=== PATIENT | male | born 1955 | race Caucasian/White ===

== ENCOUNTER → 2018-05-31 13:19 | Outpatient (CLI) | payer OTHER, SELFPAY ==
--- NOTE | 2018-05-31 13:30 | RAD_ITS ---
STUDY: X-RAY - RIGHT KNEE REASON FOR EXAM: Male, 63 years old. Knee pain. TECHNIQUE: 3 view(s) of the knee. COMPARISON: None. FINDINGS: Normal visualized distal femur. Normal visualized proximal tibia and fibula. Normal proximal tibiofibular articulation. There is no demonstrated fracture. Normal medial femorotibial compartment. Normal lateral femorotibial compartment. Normal patellofemoral articulation. There is no demonstrated joint effusion. The soft tissue structures are unremarkable. RAD/Knee 3 Views IMPRESSION: Normal x-ray examination of the knee. Electronically Signed: Derrick Flannery MD at 15:57 EST , Service support ,
--- NOTE | 2018-05-31 13:40 | RAD_ITS ---
STUDY: X-RAY - LEFT KNEE REASON FOR EXAM: Male, 63 years old. Pain. TECHNIQUE: 3 view(s) of the knee. COMPARISON: None. FINDINGS: Normal visualized distal femur. Normal visualized proximal tibia and fibula. Normal proximal tibiofibular articulation. There is no demonstrated fracture. Normal medial femorotibial compartment. Normal lateral femorotibial compartment. Normal patellofemoral articulation. There is no demonstrated joint effusion. The soft tissue structures are unremarkable. RAD/Knee 3 Views IMPRESSION: Normal x-ray examination of the knee. Electronically Signed: Derrick Flannery MD at 15:58 EST , Service support ,
--- NOTE | 2018-05-31 13:42 | RAD_ITS ---
STUDY: X-RAY - bilateral Knee(s) REASON FOR EXAM: Male, 63 years old. Pain TECHNIQUE: Single frontal view(s) of the bilateral knee(s) were obtained including AP standing weight-bearing views. COMPARISON: None. FINDINGS - RIGHT KNEE: Normal visualized right distal femur. Normal visualized proximal right tibia and fibula. Normal right proximal tibiofibular articulation. There is no demonstrated fracture of the right knee. Normal medial femorotibial compartment of the right knee. Normal lateral femorotibial compartment of the right knee. The soft tissue structures are unremarkable. FINDING - LEFT KNEE: Normal visualized left distal femur. Normal visualized proximal left tibia and fibula. Normal left proximal tibiofibular articulation. There is no demonstrated fracture of the left knee. There is mild degenerative arthrosis of the medial femorotibial compartment of the left knee. Normal lateral femorotibial compartment of the left knee. The soft tissue structures are unremarkable. RAD/Knees Standing AP Bilateral IMPRESSION: No acute abnormalities. Very mild narrowing of the medial tibiofemoral compartment of the left knee. Electronically Signed: Derrick Flannery MD at 15:59 EST , Service support ,
== END ==
PROVIDERS: Family Provider Family Medicine; PCP Family Medicine; Referring Provider Family Medicine; Visit Provider Family Medicine
DX: M23.91 Unspecified internal derangement of right knee (principal); M23.92 Unspecified internal derangement of left knee
CPT/HCPCS: 73562; 73565

== ENCOUNTER 2018-12-06 07:37 | Observation (INO) | payer OTHER, SELFPAY ==
[2018-11-12 10:08] VITALS: BP 122/76; PULSE 65; RESP 16; TEMP 36.3; O2SAT 98; BMI 28.3
--- NOTE | 2018-11-12 10:28 | SDCEKG_ITS ---
Test Reason : Blood Pressure : / mmHG Vent. Rate : 057 BPM Atrial Rate : 057 BPM P-R Int : 200 ms QRS Dur : 098 ms QT Int : 458 ms P-R-T Axes : 030 021 011 degrees QTc Int : 445 ms Sinus bradycardia Otherwise normal ECG Confirmed by HARSH ARGUELLO, NENITA ([id number]), video effects editor GRANT GRIGGS ([id number]) on 11/16/2018 2:13:11 PM Referred By: Efren Callejas Confirmed By:NENITA HOUSE MD
[2018-11-12 11:04] LABS: Hematocrit 43.4 % (40-54); Hemoglobin 15.1 g/dl (13.0-16.5); Mean Corp Hgb Conc 34.8 g/gl (32-36); Mean Platelet Vol. 10.8 fl (6.2-12.0); Platelet Count 202 K/mm3 (150-450); RBC Distribution Width CV 12.5 % (11.6-14.6); Red Blood Count 4.57 M/mm3 (4.6-6.2); White Blood Count 7.2 K/mm3 (4.4-11.0)
[2018-11-12 11:08] LABS: Scan Indicated on CBC? Y/N NO
[2018-11-12 11:13] LABS: Anion Gap 8 (5-15); BUN 20 mg/dL (7-18); Calcium,Total 9.3 mg/dL (8.5-10.1); Chloride 103 mmol/L (98-107); Creatinine, Serum 1.25 mg/dL (0.70-1.30); EST Glomerular Filtration Rate 62 mL/min (>60); Est Glom Filt Rate - Afr Amer 75 mL/min (>60); Glucose 103 mg/dL (74-106); Potassium 3.3 mmol/L (3.5-5.1); Sodium Level 139 mmol/L (136-145)
--- NOTE | 2018-11-18 10:35 | CASEMGMT ---
Spoke with patient regarding discharge plans for after upcoming surgery. Patient plans to return home with assistance from . Patient has outpatient physical therapy set up at [facility]. Patient has a walker and a shower seat. There is a bedroom and bathroom on the 1st level of the home. There are 1-2 steps to enter home. Patient asking about time for surgery, informed patient like scheduling would likely call tomorrow, Thursday, as surgery is scheduled for a Thursday. Encouraged patient to contact surgery scheduling if no phone call by 3:30-4pm. Patient also inquiring if it's necessary to see his PCP today, the PCP's office called patient and stated he had to be seen despite already having PAT here at [facility] and having EKG. Patient reports he will contact surgeon's office to see if PCP visit is necessary. Latoya Hammond LPN Clinical Support
[2018-12-06] VITALS (16 sets, daily range): BP systolic 106–122; BP diastolic 64–77; PULSE 62–88; RESP 16–18; TEMP 36.1–36.9; O2SAT 91–99; BMI 28.3
--- NOTE | 2018-12-06 | KNEE_PTH ---
PATIENT: ROULA MALLOY LOC: MS3 U#:[id number] AGE/SX: 63/M ROOM: OK305 RE12/06/[address]: Dr. Efren Callejas DO : 1955 BED: 1 DIS: 12/07/2018 SPEC #: [id number] RECD: 12/06/18 12:15 STATUS: TALI REQ #: [id number] JANINE: 12/06/18 00:[address]: Efren Callejas DEPT: SURGICAL PATHOLOGY RECD BY: Guillermo Conde ENTERED: 12/06/18 12:15 SP TYPE: TOTAL KNEE OTHR DR: Dr. Hima Reynolds MD Tissues: Knee, NOS Procedures: Decalcification bone/plaque Surgery Specimen Level IV HEADER OPERATION: ERAS, total knee replacement PRE-OP DIAGNOSIS: Endstage osteoarthritis left knee TISSUE SUBMITTED: Left knee bone and soft tissue MICROSCOPIC DIAGNOSIS Bone and soft tissue of left knee, total knee resection: Degenerative joint disease. AM:michael 12/09/18 MICROSCOPIC DESCRIPTION Slides are reviewed. GROSS DESCRIPTION Received is one container designated left knee bone and soft tissue. The specimen consists of multiple fragments of cano-yellow bone measuring in aggregate 12 x 9 x 3 cm. No soft tissue is identified. A number of bony fragments contain articular surfaces consistent with tibial plateau and femoral condyle and displaying prominent osteophyte formation and bone erosion. Appliance Installer sections are submitted in one cassette after decalcification. / SJ:michael 12/06/18 TC:5 CPT: 12798, 32389
[2018-12-06] MEDS: Gabapentin 600 MG Tablet PO (06:20)
[2018-12-06] MEDS: Acetaminophen 500 MG Tablet 1000 MG PO ×3 (06:20→21:00)
[2018-12-06] MEDS: Magnesium Sulfate 4gm/100mL 4 GM/100 ML IV.SOLN. IV (06:20)
[2018-12-06 06:56] LABS: Bedside Glucose 165 mg/dL (70-110)
[2018-12-06] MEDS: Cefazolin 2 GM in 0.9% Normal Saline 100 ML IV (07:33)
--- NOTE | 2018-12-06 09:48 | PCM.OPRPT ---
Report of Operation Date of Procedure: 12/06/18 Pre-Operative Diagnosis: OA left knee Surgery/Procedure Performed:: same Description of Surgical Findings:: Primary Surgeon/Physician: Efren Callejas office services associate: AGATA Beal office services associate: Pre-Operative Diagnosis: OA left knee Post-Operative Diagnosis: same Surgery/Procedure Performed: Left TKR Estimated Blood Loss: 25cc Specimen's Removed: bone Type of Anesthesia: general ASA Class: 2 Implants: [Daniel Triathlon size 5 CR, press-fit femur, size 5 press-fit tibia, 9 mm CS polyethylene, 32 mm press-fit patella ] Indications: Patient has severe end-stage osteoarthritis diagnosed via x-rays in the knee. They have failed all forms of conservative measures including activity modification, injections, anti-inflammatories, use of assistive device. The patient has pain that affects on a daily basis and prevents him from doing things that they enjoyed. They have elected to undergo the above procedure. The risks of the procedure were discussed at length and their questions were answered. Procedure Description: The patient was greeted in the preoperative area. The [left ] knee was then marked with a surgical marker. Patient was then taken to or [address]. They were administered a dose of antibiotics as well as tranexamic acid. Once adequate anesthesia was obtained and airway was secured to placed in supine position on the operating room table. A well-padded tourniquet was placed on the affected extremity. Leg was then prepped and draped in the usual sterile fashion from the knee down. Ioban was used on the skin. Surgical timeout was then performed and confirmed with all present. Six-inch Esmarch was used to examine the limb and tourniquet was then inflated to 250 mmHg. A longitudinal incision was then planned and carried out in the anterior aspect of the knee. The dissection was then carried the length of the incision the extensor mechanism was identified. Standard medial parapatellar arthrotomy was then performed revealing severe eburnation of bone and periarticular osteophytes. There is complete loss of cartilage especially in the medial compartment with varus alignment. Anterior fat pad was removed for visualization purposes and the anterior medial aspect of the tibia was skeletonized for exposure to the knee. The knee was then flexed the patella was inverted. Opening reamer was then used in the femur approximately 1 cm anterior to the attachment of the PCL. The intramedullary valgus wand was then placed in the femur set at 5? of valgus. The distal femoral cutting jig was then applied to the femur with anticipated resection of approximately 8 mm. This was then made with a oscillating saw. The sizing guide was then placed referencing off the posterior condyles and also reference off the epicondylar axis. This was measured and the appropriate size 4-in-1 cutting jig was then applied to the distal femur. Anterior posterior cuts were made followed by the anterior and posterior chamfer cuts. These bony pieces and fragments were removed and placed on the back table. Posterior retractor was then utilized and the tibia was subluxed anteriorly. Intramedullary tibial alignment jig was then applied to the tibia referencing off the medial one third of the tibial tubercle the anterior tibial spine the middle aspect of the tibiotalar joint. Also reference off patient's [place]. The tibial cutting jig was then pinned with anticipated resection of 2 mm off of the deficient medial tibial condyle. This cut was made with the oscillating saw. Once this was complete a laminar customer solutions specialist was utilized in both medial lateral meniscus were removed and a posterior capsular osteophytes were also removed. Posterior capsule release was performed in the posterior capsule as well as the geniculate arteries are treated with the aqua Katie. The tibia was incised and the appropriate sized tibial tray was then pinned. The femoral trial was then placed and the knee was trialed. Full flexion-extension were easily achieved. The knee seemed to balance quite nicely. Any remaining osteophytes were removed at this time. Once this was complete the patella was everted and the patella reaming device was then utilized the patella was then placed in the appropriate jig and reamer was then used to remove approximately 9 mm of the undersurface of the patella. A soft tissue remaining was in the way was removed and patella trial was then placed listed maintain excellent tracking using the no thumbs technique. The tibial tray at this point was punched to accommodate the fins of the final implant. The trial components were removed and the knee was copiously irrigated. Did use a cocktail of injection for postoperative pain control. The final components were then impacted into place. The knee is once again trialed with different size polyethylenes to ensure the full range of motion was achieved as well as excellent balancing ligamentously was achieved. At this point the knee was copiously irrigated. Final implant was then inserted locking mechanism was engaged and confirmed to be locked. The arthrotomy was then closed with #1 Vicryl aggravate type fashion interrupted. Subcutaneous tissue was closed with 0 Vicryl and surgical scott were placed in the skin. A occlusive silver impregnated dressing was then applied followed by well-padded sterile dressing secured with an Scott wrap. The patient was taken to the PACU in stable condition. No complications known at this time. Postoperatively we will maintain standard total knee postoperative protocol. office services associate: Feli Potter Type of Anesthesia:: General/Regional Anesthesiologist: Atif Gonzalez Specimen's removed: bone - Admit VTE Documentation VTE Present on Admission: No VTE Mechan Device Prophylaxis: SCD's, Thigh High RYLIE Hose VTE Pharm Prophylaxis ordered?: Yes
[2018-12-06 10:52] LABS: Hematocrit 41.4 % (40-54); Mean Corp Hgb Conc 33.8 g/dL (32-36); Mean Corpuscular Hgb 32.7 pg (27.0-32.0); Mean Corpuscular Volume 96.7 fL (80-94); Mean Platelet Vol. 10.6 fl (6.2-12.0); Platelet Count 197 K/mm3 (150-450); RBC Distribution Width CV 12.1 % (11.6-14.6); RBC Distribution Width SD 42.9 fl (35.1-43.9); Red Blood Count 4.28 M/mm3 (4.6-6.2); White Blood Count 10.3 K/mm3 (4.4-11.0)
[2018-12-06 11:08] LABS: Anion Gap 11 (5-15); BUN 15 mg/dL (7-18); BUN/Creat Ratio 11.6 RATIO (10-20); Calcium,Total 8.4 mg/dL (8.5-10.1); Chloride 103 mmol/L (98-107); Creatinine, Serum 1.29 mg/dL (0.70-1.30); EST Glomerular Filtration Rate 60 mL/min (>60); Est Glom Filt Rate - Afr Amer 73 mL/min (>60); Estimated Creatinine Clearance 64.05 ml/min; Glucose 153 mg/dL (74-106); Potassium 3.2 mmol/L (3.5-5.1); Sodium Level 141 mmol/L (136-145)
[2018-12-06] MEDS: Lactated Ringers 1,000 ML 125 ML IV (12:04)
--- NOTE | 2018-12-06 13:38 | CASEMGMT ---
RN JOSUÉ Face to Face with patient for initial transition planning/care coordination assessment. RN CM introduced self and role at [facility]. Patient lying in bed, alert and oriented. Patient willing to participate in assessment and is able to answer all questions appropriately. Care providers, pharmacy, and demographics verified. Patient wishes to discharge home and is setup with [facility] for outpatient therapy 12/10/48 0700. Patient states he has no further needs or concerns at this time. CM to follow for discharge planning needs that may arise. PCP: Gali Specialists: ej Callejas Preferred Pharmacy: [facility] Insurance: MMO Prescription Benefit: yes Living Will/HPOA: none LNOK: Living Arrangements: Patient lives with in 1 story home with 2-3 steps to enter the home. Transportation: DME/HHC: Patient has walker and shower chair at home. Disposition Plan: Patient to discharge home with outpatient therapy, family support, and follow-up plans in place. Adilene HICKMAN, RN, CM
[2018-12-06] MEDS: hydroCHLOROthiazide 25 MG Tablet PO (13:58)
[2018-12-06] MEDS: Losartan Potassium 100 MG Tablet PO (13:58)
[2018-12-06] MEDS: Cefazolin 1 GM/50 ML BAG IV ×2 (15:44→22:45)
[2018-12-06] MEDS: oxyCODONE 5 MG Tablet PO ×2 (15:46→20:30)
[2018-12-06] MEDS: Aspirin 325 MG Tablet PO (15:48)
[2018-12-06] MEDS: Senna/Docusate Sodium 1 Tablet 2 TABLET PO (21:00)
[2018-12-06] MEDS: Atorvastatin Calcium 20 MG Tablet PO (21:00)
--- NOTE | 2018-12-06 23:15 | NURSING ---
Pt's oxygen sats were running between 89 & 90%. Oxygen placed at 1L via n/c. Sats now running 92-93%. Makenna LOO aware of oxygen application.
[2018-12-06] MEDS: 0.9% NaCl Peripheral Flush Adult/Peds IV (23:25)
[2018-12-07] MEDS: oxyCODONE 5 MG Tablet PO ×3 (00:33→13:11)
[2018-12-07 05:45] VITALS: BP 135/81; PULSE 59; RESP 18; TEMP 36.4; O2SAT 97
[2018-12-07 05:50] LABS: Hematocrit 36.7 % (40-54); Hemoglobin 12.6 g/dL (13.0-16.5); Mean Corp Hgb Conc 34.3 g/dL (32-36); Mean Corpuscular Hgb 33.4 pg (27.0-32.0); Mean Corpuscular Volume 97.3 fL (80-94); Mean Platelet Vol. 11.1 fl (6.2-12.0); Platelet Count 194 K/mm3 (150-450); RBC Distribution Width SD 43.6 fl (35.1-43.9); Red Blood Count 3.77 M/mm3 (4.6-6.2); White Blood Count 13.5 K/mm3 (4.4-11.0)
[2018-12-07 06:15] LABS: Anion Gap 8 (5-15); BUN 12 mg/dL (7-18); BUN/Creat Ratio 11.3 RATIO (10-20); Calcium,Total 8.9 mg/dL (8.5-10.1); Chloride 104 mmol/L (98-107); Creatinine, Serum 1.06 mg/dL (0.70-1.30); EST Glomerular Filtration Rate 75 mL/min (>60); Est Glom Filt Rate - Afr Amer 91 mL/min (>60); Estimated Creatinine Clearance 77.94 ml/min; Glucose 125 mg/dL (74-106); Potassium 4.1 mmol/L (3.5-5.1); Sodium Level 140 mmol/L (136-145)
[2018-12-07] MEDS: Acetaminophen 500 MG Tablet 1000 MG PO ×2 (06:19→13:10)
[2018-12-07 07:45] VITALS: O2SAT 95
--- NOTE | 2018-12-07 07:55 | PCM.PN.ORT ---
Subjective: Patient doing well. Sitting up eating breakfast. Reports very little pain. - Physical Exam General: Alert, Oriented x3, No apparent distress Extremities: No clubbing, No cyanosis, No edema, Capillary Refill Less than 3 Seconds, No Calf Tenderness Skin: Incision - stable Vital Signs Temp Pulse Resp BP Pulse Ox 97.6 F L 59 L 18 135/81 H 97 12/07/18 05:45 12/07/18 05:45 12/07/18 05:45 12/07/18 05:45 12/07/18 05:45 Oxygen Flow Rate (L/min) 1 Oxygen Delivery Method Room Air Weight: 203 lb 0.732 oz Body Mass Index (BMI) 28.3 Intake and Output for Last 24 Hours 12/05/18 12/06/18 12/07/18 23:59 23:59 23:59 Intake Total 4755.4 / 4755.4 1300 / 1300 Output Total 400 / 400 Balance 4355.4 / 4355.4 1300 / 1300 Laboratory Tests Past 24 Hrs 12/06/18 12/06/18 12/07/18 10:40 10:40 05:18 WBC 10.3 13.5 H RBC 4.28 L 3.77 L Hgb 14.0 12.6 L Hct 41.4 36.7 L MCV 96.7 H 97.3 H MCH 32.7 H 33.4 H MCHC 33.8 34.3 RDW Std Deviation 42.9 43.6 RDW Coeff of Padmini 12.1 12.0 Plt Count 197 194 MPV 10.6 11.1 Sodium 141 Potassium 3.2 L Chloride 103 Carbon Dioxide 27.0 Anion Gap 11 BUN 15 Creatinine 1.29 Estim Creat Clear Calc 64.05 Est GFR (MDRD) Af Amer 73 Est GFR (MDRD) Non-Af 60 BUN/Creatinine Ratio 11.6 Glucose 153 H Calcium 8.4 L 12/07/18 05:18 WBC RBC Hgb Hct MCV MCH MCHC RDW Std Deviation RDW Coeff of Padmini Plt Count MPV Sodium 140 Potassium 4.1 Chloride 104 Carbon Dioxide 28.0 Anion Gap 8 BUN 12 Creatinine 1.06 Estim Creat Clear Calc 77.94 Est GFR (MDRD) Af Amer 91 Est GFR (MDRD) Non-Af 75 BUN/Creatinine Ratio 11.3 Glucose 125 H Calcium 8.9 Medical Necessity - Tobacco Use Smoking Status: Former smoker Tobacco Use: Cigarettes Assessment/Plan s/p Left TKR -- PT today, discharge this afternoon.
--- NOTE | 2018-12-07 08:06 | PCM.DC.TKR ---
Discharge Diet: No Restrictions Discharge Activity: May Not Drive May shower in (days): 1 Ice area for (Minutes): 20 Weight Bearing Status: Weight bearing as tolerated Elevate: Operative Extremity Additional Activity Instructions:: Wear elastic stockings for 2 weeks after your surgery. Call your doctor if your incision/area has: Continuous Slow Oozing, Sudden Increased Bleeding, Increased Pain/ Swelling, Increased Redness, Foul Smelling Discharge Call your doctor if you observe: Fever of 101 or Higher, Coldness, Increased Pain - in extremity, Numbness or Tingling, Change in Color, Calf discomfort, Uncontrolled pain Change Dressing in (Days):: 1 - and daily as needed. Cleanse incision/area with: Soap & Water Allergies/Adverse Reactions: Allergies adhesive tape Allergy (Verified 11/12/18 10:00) Rash Medications to take at Discharge Amlodipine [Norvasc] 10 mg PO DAILY 11/12/18 Omeprazole 20 mg PO DAILY 11/12/18 Rosuvastatin Calcium [Crestor] 10 mg PO DAILY 11/12/18 Losartan/Hydrochlorothiazide [Losartan-Hctz 100-25 mg Tab] 1 ea PO DAILY 11/25/18 Acetaminophen [Tylenol] 1,000 mg PO Q8 tab 12/07/18 Aspirin 325 mg PO BIDCM tab 12/07/18 Insulin Lispro [Humalog KwikPen] 1 - 6 unit SUBCUT Q4H PRN PRN insuln.pen 12/07/18 Oxycodone [Oxyir] 5 - 10 mg PO Q4H PRN PRN 7 Days #60 tab 12/07/18 The following prescriptions were given: Oxycodone [Oxyir] 5 - 10 mg PO Q4H PRN PRN 7 Days #60 tab PRN Reason: Mod-Severe Pain (-02/10) Prescription Printed Primary Care Physician: Hima Reynolds MD [Primary Care Provider] - Test Results: Test results from this visit will be discussed in further detail at your follow-up appointment, if applicable.
[2018-12-07 08:29] VITALS: BP 126/81; PULSE 62; RESP 18; TEMP 36.7; O2SAT 99
[2018-12-07] MEDS: Senna/Docusate Sodium 1 Tablet 2 TABLET PO (08:31)
[2018-12-07] MEDS: Pantoprazole Sodium 20 MG Tablet PO (08:32)
[2018-12-07] MEDS: Losartan Potassium 100 MG Tablet PO (08:32)
[2018-12-07] MEDS: hydroCHLOROthiazide 25 MG Tablet PO (08:32)
[2018-12-07] MEDS: Aspirin 325 MG Tablet PO (08:32)
[2018-12-07] MEDS: amLODIPine 10 MG Tablet PO (08:32)
[2018-12-07 13:16] VITALS: BP 166/94; PULSE 69; RESP 18; TEMP 36.8; O2SAT 96
== END 2018-12-07 13:20 | disposition home or self-care (01) ==
LOC: SDC 13:34
PROVIDERS: Anesthesiology; Admitting Provider Orthopaedic Surgery; Family Provider Family Medicine; PCP Family Medicine; Referring Provider Orthopaedic Surgery; Visit Provider Orthopaedic Surgery
PROC: (CPT 27447; principal; 2018-12-06 06:50)
DX: M17.12 Unilateral primary osteoarthritis, left knee (principal); Z87.891 Personal history of nicotine dependence; M19.90 Unspecified osteoarthritis, unspecified site; I10 Essential (primary) hypertension; Z79.899 Other long term (current) drug therapy; R00.1 Bradycardia, unspecified; K21.9 Gastro-esophageal reflux disease without esophagitis
CPT/HCPCS: 27447; 64447; 36415; 80048; 82962; 85027; 87081; 88305; 88311; 93005; 94762; 96361; 96365; 96366; 97110; 97161; 97166; 97530; 99218; C1776; J7120; A4216; G0378; G0379; J2405

== ENCOUNTER → 2018-12-08 13:39 | Outpatient (CLI) | payer OTHER, SELFPAY ==
[2018-12-06 11:48] VITALS: BMI 28.3
--- NOTE | 2018-12-08 13:44 | VDLE_ITS ---
Reason For Study: PAIN Procedure LEFT Exam performed in department. GSV is normal. A preliminary report was called and/or faxed CFV is compressible, spontaneous, phasic, to DR CALLEJAS. competent, and demonstrates normal augmentation. FV is compressible, spontaneous, phasic, competent and demonstrates normal augmentation. POP V is compressible, spontaneous, phasic, competent and demonstrates normal augmentation. T/P Trunk is compressible. PTV is compressible. LT PerV is compressible. Interpretation Summary Deep veins of the left lower extremity are patent and compressible segmentally. There is no evidence of left lower extremity deep vein thrombosis. Valvular competence appears intact within the proximal deep venous system on the left . The left greater saphenous vein appears patent and compressible segmentally. Ordering Physician: Efren Callejas Referring Physician: IVY TELLEZ Performed By: Corrine Patrick, PETTY, RVT
== END ==
PROVIDERS: Family Provider Family Medicine; PCP Family Medicine; Referring Provider Orthopaedic Surgery; Visit Provider Orthopaedic Surgery
DX: M79.605 Pain in left leg (principal)
CPT/HCPCS: 93971